=== PATIENT | female | born 1995 | race Caucasian/White ===

== ENCOUNTER 2016-06-20 16:47 | Emergency (ER) | payer BC ==
[~2016-06-20 16:47] MED LIST: ASACOL400 MG PO; EXCEDRIN MIGRA1 EACH; NUVARING V1 VAG.RING; STERAPRED5 MG/DOSE1 PO; [UNRECOGNIZED DRUG - OTHER] PO
[2016-06-20 17:06] LABS: BASOPHIL% 0.1 % (0-2.5); EOSINOPHIL% 0.1 % (0.0-7.0); HEMATOCRIT 36.7 % (35.0-45.0); LYMPHOCYTE# 0.6 X10e3 (1.0-3.5); LYMPHOCYTE% 5.8 % (17.0-45.0); MEAN CELL VOLUME 84.2 FL (83-96); MEAN CORPUSCULAR HEMOGLOBIN 27.6 PG (28-34); MEAN CORPUSCULAR HGB CONC 32.8 g/dL (30-36); MEAN PLATELET VOLUME 7.4 FL (6.5-11.5); MONOCYTE# 0.1 X10e3 (0-1.0); MONOCYTE% 0.8 % (3.0-12.0); NEUTROPHIL# 10.2 X10e3 (1.5-7.1); NEUTROPHIL% 93.2 % (40-75); PLATELET COUNT 237 X10e3 (140-420); RED BLOOD COUNT 4.35 X10e (3.90-5.30); RED CELL DISTRIBUTION WIDTH 17.7 % (11.0-15.5); WHITE BLOOD COUNT 10.9 X10e3 (4.0-10.5)
[2016-06-20 17:07] LABS: DIFF IND NO
[2016-06-20 17:28] LABS: ALBUMIN SERUM 4.1 g/dL (3.5-5.0); BILIRUBIN, DIRECT 0.1 mg/dL (0.0-0.2); BILIRUBIN,INDIRECT 0.2 mg/dL (0.0-0.9); BILIRUBIN,TOTAL 0.3 mg/dL (0.2-2.0); BUN/CREATININE RATIO 23.33; CALCIUM SERUM 8.9 mg/dL (8.4-10.2); CREATININE SERUM 0.6 mg/dL (0.6-1.4); GLOM FILT RATE Estimated 129.4 mL/min (>60); POTASSIUM 3.7 mmol/L (3.5-5.1); PROTEIN TOTAL SERUM 7.9 g/dL (6.0-8.3)
== END 2016-06-20 18:19 | disposition home or self-care (01) ==
LOC: SED 16:47
PROVIDERS: Nurse Practitioner
DX: R21 Rash and other nonspecific skin eruption (principal); F17.210 Nicotine dependence, cigarettes, uncomplicated; K51.90 Ulcerative colitis, unspecified, without complications
CPT/HCPCS: 36415; 80048; 80076; 84703; 85025; 99283

== ENCOUNTER 2016-06-29 17:19 | Emergency (ER) | payer BC ==
[2016-06-29 17:52] LABS: URINE SOURCE CLEAN CATCH
[2016-06-29 17:57] LABS: BASOPHIL# 0.1 X10e3 (0-0.3); BASOPHIL% 0.6 % (0-2.5); EOSINOPHIL# 0.1 X10e3 (0-0.7); EOSINOPHIL% 0.8 % (0.0-7.0); HEMATOCRIT 42.6 % (35.0-45.0); HEMOGLOBIN 13.7 gm/dL (12.0-16.0); LYMPHOCYTE# 1.2 X10e3 (1.0-3.5); LYMPHOCYTE% 12.9 % (17.0-45.0); MEAN CELL VOLUME 85.5 FL (83-96); MEAN CORPUSCULAR HEMOGLOBIN 27.5 PG (28-34); MEAN CORPUSCULAR HGB CONC 32.1 g/dL (30-36); MEAN PLATELET VOLUME 7.7 FL (6.5-11.5); MONOCYTE# 0.6 X10e3 (0-1.0); MONOCYTE% 6.8 % (3.0-12.0); NEUTROPHIL# 7.4 X10e3 (1.5-7.1); NEUTROPHIL% 78.9 % (40-75); PLATELET COUNT 292 X10e3 (140-420); RED BLOOD COUNT 4.98 X10e (3.90-5.30); RED CELL DISTRIBUTION WIDTH 18.4 % (11.0-15.5); WHITE BLOOD COUNT 9.4 X10e3 (4.0-10.5)
[2016-06-29 17:59] LABS: DIFF IND NO
[2016-06-29 17:59] LABS: URINE BLOOD NEG (NEG); URINE COLOR YELLOW; URINE GLUCOSE NEG (NORM); URINE LEUKOCYTE ESTERASE NEG (NEG); URINE NITRATE NEG (NEG); URINE PROTEIN NEG (NEG); URINE SPECIFIC GRAVITY 1.025 (1.003-1.035)
[2016-06-29 18:04] LABS: URINE KETONE 2+ (NEG)
[2016-06-29 18:05] LABS: MICRO INDICATED? NO; URINE BILIRUBIN NEG (NEG)
[2016-06-29 18:06] LABS: URINE APPEARANCE SL HAZY
[2016-06-29 18:09] LABS: AMPHETAMINE POS (NEG); BARBITURATES NEG (NEG); BENZODIAZEPINES NEG (NEG); COCAINE NEG (NEG); MARIJUANA POS (NEG); OPIATES NEG (NEG); TRICYCLIC ANTIDEPRESSANTS NEG (NEG); U METHADONE NEG (NEG)
[2016-06-29 18:13] LABS: INR 1.2; PROTHROMBIN TIME (PATIENT) 13.3 SECONDS (9.5-12.4)
[2016-06-29 18:20] LABS: ALBUMIN SERUM 5.2 g/dL (3.5-5.0); BILIRUBIN, DIRECT 0.1 mg/dL (0.0-0.2); BILIRUBIN,INDIRECT 0.9 mg/dL (0.0-0.9); BUN/CREATININE RATIO 16.25; CALCIUM SERUM 9.8 mg/dL (8.4-10.2); CREATININE SERUM 0.8 mg/dL (0.6-1.4); GLOM FILT RATE Estimated 104.7 mL/min (>60); PARTIAL THROMBOPLASTIN TIME 27.4 SECONDS (25.6-38.1); POTASSIUM 3.8 mmol/L (3.5-5.1); PROTEIN TOTAL SERUM 9.4 g/dL (6.0-8.3)
[2016-06-29 18:55] LABS: SEDIMENTATION RATE-SW ONLY 15 mm/hr (0-20)
== END 2016-06-29 21:33 ==
LOC: SED 17:19
PROVIDERS: Student in an Organized Health Care Education/Training Program
DX: R21 Rash and other nonspecific skin eruption (principal); R20.2 Paresthesia of skin; F15.10 Other stimulant abuse, uncomplicated; F12.10 Cannabis abuse, uncomplicated
CPT/HCPCS: 36415; 80048; 80076; 80307; 81003; 84703; 85025; 85610; 85651; 85730; 86592; 87806; 96360; 96361; 99285

== ENCOUNTER 2016-10-18 17:07 | Emergency (ER) | payer BC ==
[~2016-10-18] VITALS: Ht 160 cm; Wt 54.9 kg
--- NOTE | ~2016-10-18 | CR142 ---
[facility] A Service of [facility] & [facility] RADIOLOGY TEXT RESULTS PATIENT: TONI PALUBMO LOCATION: CFTX : [birth year] UNIT #: [id number] AGE: [address]: Irma Purvis SEX: F ORDER DR: [id number] [facility] [address] [place], [place] [address] [id number] E MR#: [id number] Acc #: [id number] NAME: TONI PALUMBO : 1995 SEX: F STUDY DATE/TIME: 10/18/2016 18:04 UNIT: [facility] ROOM: STUDY DESCRIPTION: CR Hand Min 3 Views Rt Attending Physician: Irma Purvis P.A.-C. Ordering Physician: Irma Purvis P.A.-C. MEDICAL IMAGING REPORT This report is preliminary unless electronic signature is present EXAM Right hand series HISTORY Trauma, punched wall 1 week ago. Pain swelling FINDINGS AP lateral and oblique radiographs of the right hand are presented. Oblique fracture of the junction of fifth metacarpal shaft and head. The distal fracture fragment measures approximately 1.2 cm x 1 cm. The fracture plane enters the ulnar aspect of the metacarpophalangeal joint. The fracture fragments are not significantly distracted or displaced but there is anterior angulation. The metacarpophalangeal joint space is preserved. No other fractures. There is no traumatic joint malalignment. There is no soft tissue defect, subcutaneous air or radiodense foreign body. There is relatively mild soft tissue swelling adjacent to the above described fracture. Dictated by... Len Cantu M.D. THIS IS AN ELECTRONICALLY VERIFIED REPORT Len Cantu M.D. at 10/19/2016 1:21 PM KENNA/supa TD: 10/18/2016 19:21 JOB #: [id number] MEDICAL IMAGING REPORT Page 1 of 1 COPY
== END 2016-10-18 19:30 | disposition home or self-care (01) ==
LOC: CFTX 17:07 → CED 17:07 → CFTX 17:47
DX: S62.336A Displaced fracture of neck of fifth metacarpal bone, right hand, initial encounter for closed fracture (principal); S66.326A Laceration of extensor muscle, fascia and tendon of right little finger at wrist and hand level, initial encounter; Z23 Encounter for immunization; Z88.0 Allergy status to penicillin; W22.01XA Walked into wall, initial encounter; Y92.009 Unspecified place in unspecified non-institutional (private) residence as the place of occurrence of the external cause
CPT/HCPCS: 29125; 73130; 90471; 90715; 99283